=== PATIENT | female | born 1955 | race African-American/Black ===

== ENCOUNTER 2016-11-11 13:03 | Emergency (ER) | payer OTHER ==
[~2016-11-11] VITALS: Ht 160 cm; Wt 66.0 kg
[~2016-11-11 13:03] MED LIST: ESTR1TAB PO; LOSA100T PO
[2016-11-11 13:06] VITALS: BP 189/90; PULSE 64; RESP 20; TEMP 97.8; O2SAT 98
[2016-11-11] MEDS ORDERED: SODIUM CHLORIDE 0.9% FLUSH 5 ML FLUSH IVF PRN (13:45)
[2016-11-11] MEDS ORDERED: LOSA100T PO (13:50)
[2016-11-11] MEDS ORDERED: ESTR1TAB PO (13:51)
--- NOTE | 2016-11-11 13:52 | PD ---
HPI Chief Complaint: Chest Pain Time Seen by Provider: 13:47 Travel History International Travel<30 days: No Contact w/Intl Traveler<30days: No Traveled to known affect area: No History of Present Illness HPI Patient is a 59-year-old female presented to the emergency department evaluation of right anterior chest pain. Patient states pain radiates down her right arm. She denies any shortness of breath, diaphoresis, nausea, headache. She states that on Friday she went to an urgent care clinic due to pain in her right upper back. She initially attributed the pain in her chest today to that same back pain but again the pain is worse today and now in her chest wall radiating down the right arm. She states the pain is an 8 out of 10 she describes as aching and sore. Patient has a history of hypertension, she did not take her losartan this morning. Her primary care provider is Dr. Raysa Stafford, she has no stocklayer. PFSH Past Medical History Arthritis: No Asthma: No Autoimmune Disease: No Anxiety: No Depression: No Heart Rhythm Problems: No Cancer: No Cardiac Catheterization: No Cardiovascular Problems: No High Cholesterol: No Chemotherapy: No Chest Pain: Yes (THIS ADMISSION) Congestive Heart Failure: No COPD: No Cerebrovascular Accident: No Diabetes: No Endocrine: No GERD: No Genitourinary: No Hepatitis: No Hiatal Hernia: No Hypertension: Yes Immune Disorder: No Kidney Stones: No Musculoskeletal: No Neurologic: No Psychiatric: No Reproductive: No Respiratory: No Migraines: No Radiation Therapy: No Renal Failure: No Seizures: No Sickle Cell Disease: Yes (SICKLE CELL TRAIT) Sleep Apnea: No Thyroid Disease: No Ulcer: No Past Surgical History AICD: No Appendectomy: Yes Arteriovenous Shunt: No Cardiac Surgery: No Coronary Artery Bypass Graft: No Ear Surgery: No Endocrine Surgery: No Eye Surgery: No Hysterectomy: Yes Insulin Pump: No Joint Replacement: No Oral Surgery: No Pacemaker: No Thoracic Surgery: No Other Surgery: Yes Social History Alcohol Use: Yes (SOCIALLY) Tobacco Use: No Substance Use: No Allergies-Medications (Allergen,Severity, Reaction): Coded Allergies: No Known Allergies (Verified , 11/11/16) Reported Meds & Prescriptions Reported Meds & Active Scripts Active Reported Estradiol 1 Mg Tab 1 Mg PO DAILY Losartan (Losartan Potassium) 100 Mg Tab 100 Mg PO DAILY Review of Systems Except as stated in HPI: all other systems reviewed are Neg Eyes: No: Visual changes HENT: No: Headaches, Lightheadedness Cardiovascular: Positive: Chest Pain or Discomfort, No: Diaphoresis, Syncope, Dyspnea on exertion Respiratory: No: Shortness of Breath Gastrointestinal: No: Nausea, Abdominal Pain Physical Exam Narrative GENERAL: Well-developed, well-nourished, alert female. Resting comfortably in no acute distress. SKIN: Warm and dry. HEAD: Atraumatic. Normocephalic. EYES: Pupils equal and round. No scleral icterus. No injection or drainage. ENT: No nasal bleeding or discharge. Mucous membranes pink and moist. NECK: Trachea midline. No JVD. CARDIOVASCULAR: Regular rate and rhythm. No murmur appreciated. RESPIRATORY: No accessory muscle use. Clear to auscultation. Breath sounds equal bilaterally. GASTROINTESTINAL: Abdomen soft, non-tender, nondistended. Hepatic and splenic margins not palpable. MUSCULOSKELETAL: No obvious deformities. No clubbing. No cyanosis. No edema. NEUROLOGICAL: Awake and alert. No obvious cranial nerve deficits. Motor grossly within normal limits. Normal speech. PSYCHIATRIC: Appropriate mood and affect; insight and judgment normal. Data Data Last Documented VS Vital Signs Date Time Temp Pulse Resp B/P Pulse Ox O2 Delivery O2 Flow Rate FiO2 11/11/16 14:56 57 18 183/79 97 Room Air 11/11/16 13:06 97.8 Orders Electrocardiogram (11/11/16 13:33) Ckmb (Isoenzyme) Profile (11/11/16 13:33) Complete Blood Count With Diff (11/11/16 13:33) Comprehensive Metabolic Panel (11/11/16 13:33) Magnesium (Mg) (11/11/16 13:33) Prothrombin Time / Inr (Pt) (11/11/16 13:33) Act Partial Throm Time (Ptt) (11/11/16 13:33) Troponin I (11/11/16 13:33) Chest, Single Ap (11/11/16 13:33) Sodium Chloride 0.9% Flush (Ns Flush) (11/11/16 13:45) CKMB (11/11/16 13:39) CKMB% (11/11/16 13:39) Labs Laboratory Tests Test 11/11/16 13:39 White Blood Count 5.6 TH/MM3 Red Blood Count 4.29 MIL/MM3 Hemoglobin 12.7 GM/DL Hematocrit 37.8 % Mean Corpuscular Volume 88.0 FL Mean Corpuscular Hemoglobin 29.7 PG Mean Corpuscular Hemoglobin 33.7 % Concent Red Cell Distribution Width 13.2 % Platelet Count 253 TH/MM3 Mean Platelet Volume 8.7 FL Neutrophils (%) (Auto) 59.1 % Lymphocytes (%) (Auto) 30.9 % Monocytes (%) (Auto) 8.6 % Eosinophils (%) (Auto) 0.7 % Basophils (%) (Auto) 0.7 % Neutrophils # (Auto) 3.3 TH/MM3 Lymphocytes # (Auto) 1.7 TH/MM3 Monocytes # (Auto) 0.5 TH/MM3 Eosinophils # (Auto) 0.0 TH/MM3 Basophils # (Auto) 0.0 TH/MM3 CBC Comment DIFF FINAL Differential Comment Prothrombin Time 10.8 SEC Prothromb Time International 1.0 RATIO Ratio Activated Partial 28.0 SEC Thromboplast Time Sodium Level 142 MEQ/L Potassium Level 4.2 MEQ/L Chloride Level 106 MEQ/L Carbon Dioxide Level 27.2 MEQ/L Anion Gap 9 MEQ/L Blood Urea Nitrogen 11 MG/DL Creatinine 0.87 MG/DL Estimat Glomerular Filtration 80 ML/MIN Rate Random Glucose 80 MG/DL Calcium Level 8.9 MG/DL Magnesium Level 1.9 MG/DL Total Bilirubin 0.3 MG/DL Aspartate Amino Transf 11 U/L (AST/SGOT) Alanine Aminotransferase 18 U/L (ALT/SGPT) Alkaline Phosphatase 38 U/L Total Creatine Kinase 127 U/L Creatine Kinase MB 0.9 NG/ML Troponin I LESS THAN 0.02 NG/ML Total Protein 7.4 GM/DL Albumin 3.9 GM/DL MDM Medical Decision Making Medical Screen Exam Complete: Yes Emergency Medical Condition: Yes Interpretation(s) Vital Signs Date Time Temp Pulse Resp B/P Pulse Ox O2 Delivery O2 Flow Rate FiO2 11/11/16 13:06 97.8 64 20 189/90 98 Room Air Differential Diagnosis Chest wall pain versus discogenic pain versus AMI versus USA versus other Narrative Course Patient is a 61-year-old female presenting to the emergency department evaluation of chest pain. Patient was seen and evaluated at an urgent care center on Friday due to pain in her right upper back. She presented today on the advice of her coworkers since the pain was now in her anterior chest wall radiating down her right arm. Initial EKG shows sinus bradycardia. Workup initiated in triage, care patient will be transferred to provider with a medical bed is available. Rajani Barkley Nov 11, 2016 13:51
[2016-11-11 13:58] LABS: AUTOMATED NEUTROPHIL # 3.3 TH/MM3 (1.8-7.7); BASOPHIL % 0.7 % (0.0-2.0); EOSINOPHIL % 0.7 % (0.0-4.0); HEMATOCRIT 37.8 % (35.0-46.0); HEMO FLAGS DIFF FINAL; LYMPH % 30.9 % (9.0-44.0); LYMPHOCYTE # 1.7 TH/MM3 (1.0-4.8); MEAN CORPUSCULAR HEMOGLOBIN 29.7 PG (27.0-34.0); MEAN CORPUSCULAR HGB CONC 33.7 % (32.0-36.0); MONO % 8.6 % (0.0-8.0); NEUT % 59.1 % (16.0-70.0); PLATELET COUNT 253 TH/MM3 (150-450); RED BLOOD COUNT 4.29 MIL/MM3 (4.00-5.30); RED CELL DISTRIBUTION WIDTH 13.2 % (11.6-17.2); WHITE BLOOD COUNT 5.6 TH/MM3 (4.0-11.0)
[2016-11-11 14:10] LABS: PROTHROMBIN TIME - PATIENT 10.8 SEC (9.8-11.6)
[2016-11-11 14:19] LABS: ALT (GPT) 18 U/L (10-53); ANION GAP 9 MEQ/L (5-15); AST (GOT) 11 U/L (15-37); BICARBONATE 27.2 MEQ/L (21.0-32.0); BLOOD UREA NITROGEN 11 MG/DL (7-18); CHLORIDE 106 MEQ/L (98-107); GLOMERULAR FILTRATION RATE 80 ML/MIN (>89); MAGNESIUM 1.9 MG/DL (1.5-2.5); POTASSIUM 4.2 MEQ/L (3.5-5.1); SODIUM (NA) 142 MEQ/L (136-145)
[2016-11-11 14:23] LABS: ALKALINE PHOSPHATASE 38 U/L (45-117); CREATINE KINASE 127 U/L (26-192); TOTAL BILIRUBIN ADULT 0.3 MG/DL (0.2-1.0)
--- NOTE | 2016-11-11 14:25 | RADRPT ---
EXAM DATE/TIME: 11/11/2016 14:16 [facility] COMPARISON: No previous studies available for comparison. INDICATIONS : Right side chest and arm pain. MEDICAL HISTORY : None. SURGICAL HISTORY : None. ENCOUNTER: Initial ACUITY: 4 - 6 days PAIN SCORE: 10/10 LOCATION: Right chest FINDINGS: Portable AP view of the chest demonstrates a normal-sized cardiac silhouette. No effusion, consolidat ion, or pneumothorax is visualized. The bones and soft tissues demonstrate no acute abnormality. CONCLUSION: No acute cardiopulmonary abnormality is identified. Alhaji Davidson MD on November 11, 2016 at 14:22 Board Certified Radiologist. This report was verified electronically.
[2016-11-11 14:35] LABS: CKMB 0.9 NG/ML (0.5-3.6)
[2016-11-11 14:56] VITALS: BP 183/79; PULSE 57; RESP 18; O2SAT 97
--- NOTE | 2016-11-11 15:22 | PD ---
Data Data Last Documented VS Vital Signs Date Time Temp Pulse Resp B/P Pulse Ox O2 Delivery O2 Flow Rate FiO2 11/11/16 14:56 57 18 183/79 97 Room Air 11/11/16 13:06 97.8 Orders Electrocardiogram (11/11/16 13:33) Ckmb (Isoenzyme) Profile (11/11/16 13:33) Complete Blood Count With Diff (11/11/16 13:33) Comprehensive Metabolic Panel (11/11/16 13:33) Magnesium (Mg) (11/11/16 13:33) Prothrombin Time / Inr (Pt) (11/11/16 13:33) Act Partial Throm Time (Ptt) (11/11/16 13:33) Troponin I (11/11/16 13:33) Chest, Single Ap (11/11/16 13:33) Sodium Chloride 0.9% Flush (Ns Flush) (11/11/16 13:45) CKMB (11/11/16 13:39) CKMB% (11/11/16 13:39) Labs Laboratory Tests Test 11/11/16 13:39 White Blood Count 5.6 TH/MM3 Red Blood Count 4.29 MIL/MM3 Hemoglobin 12.7 GM/DL Hematocrit 37.8 % Mean Corpuscular Volume 88.0 FL Mean Corpuscular Hemoglobin 29.7 PG Mean Corpuscular Hemoglobin 33.7 % Concent Red Cell Distribution Width 13.2 % Platelet Count 253 TH/MM3 Mean Platelet Volume 8.7 FL Neutrophils (%) (Auto) 59.1 % Lymphocytes (%) (Auto) 30.9 % Monocytes (%) (Auto) 8.6 % Eosinophils (%) (Auto) 0.7 % Basophils (%) (Auto) 0.7 % Neutrophils # (Auto) 3.3 TH/MM3 Lymphocytes # (Auto) 1.7 TH/MM3 Monocytes # (Auto) 0.5 TH/MM3 Eosinophils # (Auto) 0.0 TH/MM3 Basophils # (Auto) 0.0 TH/MM3 CBC Comment DIFF FINAL Differential Comment Prothrombin Time 10.8 SEC Prothromb Time International 1.0 RATIO Ratio Activated Partial 28.0 SEC Thromboplast Time Sodium Level 142 MEQ/L Potassium Level 4.2 MEQ/L Chloride Level 106 MEQ/L Carbon Dioxide Level 27.2 MEQ/L Anion Gap 9 MEQ/L Blood Urea Nitrogen 11 MG/DL Creatinine 0.87 MG/DL Estimat Glomerular Filtration 80 ML/MIN Rate Random Glucose 80 MG/DL Calcium Level 8.9 MG/DL Magnesium Level 1.9 MG/DL Total Bilirubin 0.3 MG/DL Aspartate Amino Transf 11 U/L (AST/SGOT) Alanine Aminotransferase 18 U/L (ALT/SGPT) Alkaline Phosphatase 38 U/L Total Creatine Kinase 127 U/L Creatine Kinase MB 0.9 NG/ML Troponin I LESS THAN 0.02 NG/ML Total Protein 7.4 GM/DL Albumin 3.9 GM/DL MDM Supervised Visit with CELESTINO: Yes Narrative Course I, Dr. Beltran, have reviewed the advance practice practioner's documentation and am in agreement, met with the patient face to face, made the diagnosis, and the medical decision making was done by me. *My assessment and Findings: 61 year-old female with history of HTN here with complaint of right shoulder pain for the last 3 days, constant , achy, radiating to the right arm. This is not made worse with any movement. Patient was seen at primary care clinic, thought that this was potentially musculoskeletal and less to come back for trigger point steroid injection. Pain is worse today and now is radiating slightly into the right anterior chest. Symptoms are not made worse with any exertion. Patient denies any cardiac history, she had a negative stress test 3 years ago. Pain is not reproducible on exam, normal shoulder range of motion, strength. No tenderness to palpation of the chest wall, regular rate and rhythm, clear to auscultation bilaterally. Differential includes internal to range of motion of the shoulder , musculoskeletal pain, impingement, cervical radiculopathy, ACS. Patient placed on monitor, IV established and blood obtained. Twelve-lead EKG shows sinus bradycardia, rate [address] or T-wave abnormalities and normal intervals. Laboratory workup negative. I do think that patient warrants provocative testing. 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 Given that she's had 3 days of constant pain with negative cardiac enzymes I am comfortable with outpatient stress testing. I called and spoke with patient's PCP, Dr. Uriostegui, who will assist with scheduling this as an outpatient. Patient given strict return instructions Diagnosis Primary Impression: Right shoulder pain Qualified Code: M25.511 - Acute pain of right shoulder Additional Impression: Chest pain Qualified Code: R07.9 - Chest pain, unspecified type Referrals: Raysa Elias Jr., MD call for appointment Additional Instruction: Return to the emergency department for the warning signs discussed. Follow-up with Dr. Elias as outpatient for stress testing as instructed. Med/Other Pt SpecificInfo: No Change to Meds Disposition: 01 DISCHARGE HOME Condition: Stable Stephanie Beltran MD Nov 11, 2016 15:22
--- NOTE | 2016-11-12 15:44 | EKG ---
Date Performed: 11/11/2016 Time Performed: 13:22:54 PTAGE: 61 years EKG: SINUS BRADYCARDIA BORDERLINE ECG NO PREVIOUS TRACING DOCTOR: Trell Marte Interpretating Date/Time 11/12/2016 15:43:12
[2016-11-15] MEDS ORDERED: DICL50TA3 PO (15:56)
== END 2016-11-11 16:00 | disposition home or self-care (01) ==
LOC: NEPA 13:03
DX: M25.511 Pain in right shoulder (principal); R07.9 Chest pain, unspecified; M79.601 Pain in right arm; R00.1 Bradycardia, unspecified; I10 Essential (primary) hypertension; R94.31 Abnormal electrocardiogram [ECG] [EKG]; Z86.2 Personal history of diseases of the blood and blood-forming organs and certain disorders involving the immune mechanism
CPT/HCPCS: 71010; 80053; 82550; 82552; 83735; 84484; 85025; 85610; 85730; 93005

== ENCOUNTER → 2016-12-19 | Outpatient (CLI) | payer OTHER ==
[~2016-12-19] MED LIST changes: +DICL50TA3 PO
[2016-12-19 08:35] LABS: HEMATOCRIT 35.6 % (35.0-46.0); MEAN CELL VOLUME 88.6 FL (80.0-100.0); MEAN CORPUSCULAR HEMOGLOBIN 29.8 PG (27.0-34.0); MEAN CORPUSCULAR HGB CONC 33.6 % (32.0-36.0); PLATELET COUNT 264 TH/MM3 (150-450); RED BLOOD COUNT 4.02 MIL/MM3 (4.00-5.30); RED CELL DISTRIBUTION WIDTH 13.6 % (11.6-17.2); REVIEW FLAG FINAL; WHITE BLOOD COUNT 5.2 TH/MM3 (4.0-11.0)
[2016-12-19 09:09] LABS: ALKALINE PHOSPHATASE 51 U/L (45-117); ALT (GPT) 934 U/L (10-53); AST (GOT) 402 U/L (15-37); BLOOD UREA NITROGEN 14 MG/DL (7-18); GLOMERULAR FILTRATION RATE 72 ML/MIN (>89); GLUCOSE,FASTING 97 MG/DL (74-99); SODIUM (NA) 142 MEQ/L (136-145); TOTAL BILIRUBIN ADULT 0.3 MG/DL (0.2-1.0)
[2016-12-19 09:10] LABS: ANION GAP 5 MEQ/L (5-15); BICARBONATE 29.6 MEQ/L (21.0-32.0); CHLORIDE 107 MEQ/L (98-107); HDL CHOLESTEROL 149.5 MG/DL (40.0-60.0); LDL CHOLESTEROL 52 MG/DL (0-99); POTASSIUM 3.9 MEQ/L (3.5-5.1)
== END ==
LOC: CLAB 08:07
PROVIDERS: ATTEND Family Medicine
DX: I10 Essential (primary) hypertension (principal); R73.09 Other abnormal glucose; K21.9 Gastro-esophageal reflux disease without esophagitis; M50.90 Cervical disc disorder, unspecified, unspecified cervical region
CPT/HCPCS: 36415; 80053; 80061; 85027

== ENCOUNTER → 2016-12-20 | Outpatient (CLI) | payer OTHER ==
[2016-12-20 11:22] LABS: TOTAL BILIRUBIN ADULT 0.3 MG/DL (0.2-1.0)
[2016-12-20 11:31] LABS: INDIRECT BILIRUBIN 0.2 MG/DL (0.0-0.8)
== END ==
LOC: CLAB 10:33
PROVIDERS: ATTEND Family Medicine
DX: R74.8 Abnormal levels of other serum enzymes (principal)
CPT/HCPCS: 36415; 80074; 80076

== ENCOUNTER → 2017-01-07 | Outpatient (CLI) | payer OTHER ==
[2017-01-07 08:53] LABS: INDIRECT BILIRUBIN 0.2 MG/DL (0.0-0.8); TOTAL BILIRUBIN ADULT 0.3 MG/DL (0.2-1.0)
== END ==
LOC: CLAB 08:02
PROVIDERS: ATTEND Family Medicine
DX: R74.8 Abnormal levels of other serum enzymes (principal)
CPT/HCPCS: 36415; 80076

== ENCOUNTER → 2017-05-20 | Outpatient (CLI) | payer OTHER ==
[2017-05-20 08:40] LABS: HEMATOCRIT 39.1 % (35.0-46.0); MEAN CELL VOLUME 89.8 FL (80.0-100.0); MEAN CORPUSCULAR HEMOGLOBIN 29.9 PG (27.0-34.0); MEAN CORPUSCULAR HGB CONC 33.3 % (32.0-36.0); PLATELET COUNT 256 TH/MM3 (150-450); RED BLOOD COUNT 4.36 MIL/MM3 (4.00-5.30); RED CELL DISTRIBUTION WIDTH 13.5 % (11.6-17.2); REVIEW FLAG FINAL
[2017-05-20 09:07] LABS: ALT (GPT) 34 U/L (10-53); ANION GAP 5 MEQ/L (5-15); AST (GOT) 22 U/L (15-37); BLOOD UREA NITROGEN 14 MG/DL (7-18); CHLORIDE 108 MEQ/L (98-107); GLOMERULAR FILTRATION RATE 78 ML/MIN (>89); GLUCOSE,FASTING 104 MG/DL (74-99); POTASSIUM 4.1 MEQ/L (3.5-5.1); SODIUM (NA) 142 MEQ/L (136-145)
[2017-05-20 09:17] LABS: ALKALINE PHOSPHATASE 50 U/L (45-117); HDL CHOLESTEROL 118.3 MG/DL (40.0-60.0); LDL CHOLESTEROL 58 MG/DL (0-99); TOTAL BILIRUBIN ADULT 0.2 MG/DL (0.2-1.0)
== END ==
LOC: CLAB 08:16
PROVIDERS: ATTEND Family Medicine
DX: R73.09 Other abnormal glucose (principal); K21.9 Gastro-esophageal reflux disease without esophagitis; E55.9 Vitamin D deficiency, unspecified; I10 Essential (primary) hypertension; R74.8 Abnormal levels of other serum enzymes; G47.00 Insomnia, unspecified; M50.90 Cervical disc disorder, unspecified, unspecified cervical region; N95.9 Unspecified menopausal and perimenopausal disorder
CPT/HCPCS: 36415; 80053; 80061; 82652; 84443; 85027

== ENCOUNTER 2017-07-22 20:50 | Emergency (ER) | payer OTHER ==
[2017-07-22 20:52] VITALS: BP 177/81; PULSE 74; RESP 15; TEMP 98.4; O2SAT 100
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
[2017-07-22] MEDS ORDERED: ROBA500T PO (23:55)
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
[2017-07-25] MEDS ORDERED: COLA100C5 PO (12:11)
== END 2017-07-23 00:20 | disposition home or self-care (01) ==
LOC: NEPK 20:50
DX: S16.1XXA Strain of muscle, fascia and tendon at neck level, initial encounter (principal); I10 Essential (primary) hypertension; D57.3 Sickle-cell trait; M50.30 Other cervical disc degeneration, unspecified cervical region; V43.52XA Car driver injured in collision with other type car in traffic accident, initial encounter; Z79.899 Other long term (current) drug therapy
CPT/HCPCS: 72125

== ENCOUNTER → 2017-07-28 | Outpatient (CLI) | payer OTHER ==
[~2017-07-28] VITALS: Ht 160 cm; Wt 66.0 kg
[~2017-07-28] MED LIST changes: +CHLORHEXIDINE GLUCONATE 2 % 1 PACK (2 CLOTHS) TOPICAL PRN; +COLA100C5 PO; +DEXTROSE 5% IN WATE 1000ML INJ 1,000 ML IV SCH; -DICL50TA3 PO; +GLYCOPYRROLATE 1 MG/5 ML SYRINGE IV PUSH ONE; +LACTATED RINGER'S 1000 ML IV PRN; +LIDOCAINE HCL 1% PF 5 ML SYRINGE OTHER ONE; +METOPROLOL TARTRATE 25 MG TAB PO PRN; +MIDAZOLAM HCL 2 MG/2 ML VIAL IV ONE; +POVIDONE IODINE 5% (ANTISEPSIS KIT) 4 APPLICATIONS EACH NARE PRN; +PROPOFOL 200 MG/20 ML AMP IV ONE; +ROBA500T PO; +SODIUM CHLORID 0.9% 500 ML IV PRN
--- NOTE | 2017-07-28 14:18 | GIPROC ---
[facility] [address] [facility]. [facility], [address] COLONOSCOPY PROCEDURE REPORT EXAM DATE: 07/28/2017 PATIENT NAME: Alicia Hastings MR #: [id number] BIRTHDATE: 1955 ENDOSCOPIST: Huong Cox MD ORDER #: [id number] [employer] OPERATOR: STATUS: outpatient INDICATIONS: The patient is a 62 yr old female here for a colonoscopy due to Screening, Family history of Colon Cancer PROCEDURE PERFORMED: Total Colonoscopy MEDICATIONS: See Anesthesia Record ESTIMATED BLOOD LOSS: None CONSENT: The patient understands the risks and benefits of the procedure and understands that these risks include, but are not limited to: sedation, allergic reaction, infection, perforation and/or bleeding. Alternative means of evaluation and treatment include, among others: physical exam, x-rays, and/or surgical intervention. The patient elects to proceed with this endoscopic procedure. DESCRIPTION OF PROCEDURE: checked for proper function. Hand hygiene and appropriate measures for infection prevention was taken. After the risks, benefits and alternatives of the procedure were thoroughly explained, Informed consent was verified, confirmed and timeout was successfully executed by the treatment team. A digital exam was performed. The endoscope was introduced through the anus and advanced to the cecum, which was identified by the appendiceal orifice, tri-radiate valve, and ileocecal valve. The prep quality was excellent. The instrument was then slowly withdrawn as the colon was fully examined. There were no mucosal abnormalities noted with the cecum, ascending colon, transverse colon, descending colon, sigmoid, or rectum. The scope was then completely withdrawn from the patient and the procedure terminated. ADVERSE EVENTS: There were no complications. WITHDRAWL TIME: DEGREE OF DIFFICULTY: IMPRESSIONS: Normal Colon RECOMMENDATIONS: Repeat colonoscopy 5 years PATIENT CONDITION: Stable DISPOSITION: Home RECALL: 5 years Huong Cox MD eSigned: Huong Cox MD 07/28/2017 2:18 PM cc: Dr. Yang PATIENT NAME: Alicia Hastings MR#: [id number]
[2017-07-28 15:00] VITALS: BP 134/78; PULSE 71; RESP 18; TEMP 97.2; O2SAT 99
== END ==
LOC: HSDC 11:34
PROVIDERS: ATTEND Colon & Rectal Surgery
DX: Z12.11 Encounter for screening for malignant neoplasm of colon (principal); Z80.0 Family history of malignant neoplasm of digestive organs; I10 Essential (primary) hypertension; R73.03 Prediabetes
CPT/HCPCS: 00810; 45378; J2250; J7120

== ENCOUNTER → 2017-12-25 | Outpatient (CLI) | payer OTHER ==
[~2017-12-25] MED LIST changes: -CHLORHEXIDINE GLUCONATE 2 % 1 PACK (2 CLOTHS) TOPICAL PRN; -DEXTROSE 5% IN WATE 1000ML INJ 1,000 ML IV SCH; -GLYCOPYRROLATE 1 MG/5 ML SYRINGE IV PUSH ONE; -LACTATED RINGER'S 1000 ML IV PRN; -LIDOCAINE HCL 1% PF 5 ML SYRINGE OTHER ONE; -METOPROLOL TARTRATE 25 MG TAB PO PRN; -MIDAZOLAM HCL 2 MG/2 ML VIAL IV ONE; -POVIDONE IODINE 5% (ANTISEPSIS KIT) 4 APPLICATIONS EACH NARE PRN; -PROPOFOL 200 MG/20 ML AMP IV ONE; -ROBA500T PO; -SODIUM CHLORID 0.9% 500 ML IV PRN
[2017-12-25 08:36] LABS: HEMATOCRIT 38.6 % (35.0-46.0); HEMOGLOBIN 12.8 GM/DL (11.6-15.3); MEAN CELL VOLUME 88.8 FL (80.0-100.0); MEAN CORPUSCULAR HEMOGLOBIN 29.6 PG (27.0-34.0); MEAN CORPUSCULAR HGB CONC 33.3 % (32.0-36.0); MEAN PLATELET VOLUME 8.5 FL (7.0-11.0); PLATELET COUNT 280 TH/MM3 (150-450); RED BLOOD COUNT 4.34 MIL/MM3 (4.00-5.30); RED CELL DISTRIBUTION WIDTH 13.5 % (11.6-17.2); WHITE BLOOD COUNT 5.1 TH/MM3 (4.0-11.0)
[2017-12-25 09:02] LABS: ALBUMIN 3.6 GM/DL (3.4-5.0); AST (GOT) 17 U/L (15-37); BLOOD UREA NITROGEN 14 MG/DL (7-18); CALCIUM 9.1 MG/DL (8.5-10.1); CHLORIDE 106 MEQ/L (98-107); CREATININE 0.93 MG/DL (0.50-1.00); GLOMERULAR FILTRATION RATE 74 ML/MIN (>89); GLUCOSE,FASTING 105 MG/DL (74-99); SODIUM (NA) 141 MEQ/L (136-145)
[2017-12-25 09:03] LABS: ALT (GPT) 29 U/L (10-53); CHOLESTEROL 194 MG/DL (120-200); TRIGLYCERIDES 52 MG/DL (42-150)
[2017-12-25 09:13] LABS: ALKALINE PHOSPHATASE 45 U/L (45-117); CHOLESTEROL/ HDL RATIO 1.59 RATIO; HDL CHOLESTEROL 121.6 MG/DL (40.0-60.0); LDL CHOLESTEROL 62 MG/DL (0-99); TOTAL BILIRUBIN ADULT 0.2 MG/DL (0.2-1.0); TOTAL PROTEIN 7.8 GM/DL (6.4-8.2)
[2017-12-25 18:59] LABS: HEMOGLOBIN A1C 6.2 % (4.3-6.0)
== END ==
LOC: CLAB 08:15
PROVIDERS: ATTEND Family Medicine
DX: R73.09 Other abnormal glucose (principal); R74.8 Abnormal levels of other serum enzymes; E55.9 Vitamin D deficiency, unspecified; K21.9 Gastro-esophageal reflux disease without esophagitis; I10 Essential (primary) hypertension; N95.9 Unspecified menopausal and perimenopausal disorder; G47.00 Insomnia, unspecified; M50.90 Cervical disc disorder, unspecified, unspecified cervical region
CPT/HCPCS: 36415; 80053; 80061; 82306; 83036; 84443; 85027